=== PATIENT | male | born 1985 | race Caucasian/White ===

== ENCOUNTER 2020-07-26 07:16 | Emergency (ER) | payer BC, SELFPAY ==
[2020-07-26 07:18] VITALS: BP 127/76; PULSE 83; RESP 16; TEMP 36.7; O2SAT 99; BMI 22.4
--- NOTE | 2020-07-26 08:02 | EDS_ITS ---
HPI History of Present Illness Chief Complaint: Dizziness Informant: patient Onset/Context/Timing Onset: Weeks Narrative Narrative: Patient is a 34-year-old male with family history of vertigo presenting with recurrent vertigo. Patient states he has been having worsening vertigo over the past week and a half. He describes it as a room spinning sensation. Patient is seen in [place] [facility] a week and half ago and prescribed meclizine. He states it does help with his symptoms keep recurring. They are worse in the morning when he wakes up. He did not take any meclizine this morning. He states he has chronic issues with pain through his right eye difficulty focusing with his right eye. Is been like that since he was a child. He states his left eye was patched as a child. Patient notes he does have chronic ringing in his ears, left worse than right. 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 His primary care doctor when he lived in [place] had referred him to a neurologist but he never saw 1. He has had issues with vertigo his entire life but has been worse over the past week and a half. He denies any acute vision changes. He denies any difficulty with his coordination or dropping any items. No other complaints at this time. Patient states he did not go to work today so he does need a work note. Prior similar symptoms: [facility] Medical History Vertigo Home Medications meclizine 25 mg PO BID PRN 07/26/20 [History Last Taken Unknown] meclizine 25 mg PO TID PRN #14 tab 07/26/20 [Rx Last Taken Unknown] Allergy/AdvReac Type Severity Reaction Status Date / Time No Known Allergies Allergy Verified 07/26/20 07:17 no surgical history Social History Smoking Status: Smoker, status unknown ROS [facility] ED Constitutional Constitutional ED: Denies chills or fever(s) Eyes Eyes: Reports blurry vision and diplopia; Denies change in vision ENT ENT ED: Reports other Details: Sinus congestion ; Denies change in voice, ear pain, rhinorrhea or vertigo Cardiovascular Cardiovascular: Denies chest pain or hypertension Respiratory/Chest Respiratory/Chest: Denies chest tightness, shortness of breath at rest or other Gastrointestinal Gastrointestinal: Denies nausea or vomiting Genitourinary Genitourinary ED: Denies dysuria or hematuria Musculoskeletal Musculoskeletal: Denies abnormal gait, difficulty walking or muscle weakness Integumentary Denies new lesions or rash Neurologic Neurologic: Reports other Details: Vertigo ; Denies headache(s), paresthesias or weakness Psychiatric Psychiatric: Denies anxiety or confusion EXAM Physical Exam Const Vital Signs: 07/26/20 07:18 07/26/20 07:23 07/26/20 08:28 Temperature 98.0 F Temperature Source Temporal Pulse Rate 83 73 Respiratory Rate 16 18 Respiratory Effort Normal Non-Labored Respiratory Pattern Normal Blood Pressure 127/76 H Blood Pressure Mean 93 Pulse Ox 99 97 Oxygen Delivery Method Room Air Positive well nourished and well developed General Appearance ED: well developed HEENT Reports TM's clear and moist mucous membranes HEENT Narrative: Increased pressure of the tympanic membranes with distorted light reflex bilaterally. No middle ear effusion noted. No erythema tympanic membrane. Boggy nasal mucosa present. Negative for trauma or tenderness Tympanic Membrane ED: Yes TM's clear Eyes PERRL and conjunctivae normal Eyes Narrative: Patient appears to have strabismus of his right eye. He has petit nystagmus with leftward gaze. Positive Orlando-Hallpike test to the left. Pupil: Negative for Kalen Mari pupil Neck no lymphadenopathy, supple and no JVD Resp normal respiratory effort and clear to auscultation bilaterally Cardio regular rate, regular rhythm and no murmurs GI normal to inspection, nondistended, normoactive bowel sounds Extremity normal to inspection General Extremety ED: Negative for edema General Extremity: Negative for edema Neuro oriented x3, CN's II-XII intact bilaterally and no sensory deficits noted Neuro Narrative: Normal coordination with [id number]. Normal ambulation. Sensorium / Orientation: alert Motor Exam: Negative for general weakness Psych mental status grossly normal Skin no rashes or lesions noted MDM MDM MDM Narrative Medical decision making narrative: Patient valuated for recurrent vertigo. He appears nontoxic in no acute distress. He does have strabismus of the right eye which I think is complicating his vertigo. He has a longstanding history of strabismus and vertigo and I do not think this is an acute [id number] circulation stroke or other acute intracranial process. I think this is peripheral vertigo. Patient is given a dose of meclizine in the ER. He is instructed on Maureen maneuver. He is referred to ENT, ophthalmology as well as a primary care doctor. He is given a work note for today. He is given another prescription for meclizine as it does help the symptoms when he takes it. He otherwise has a normal neurologic exam. I do not think imaging or emergent blood work is indicated at this time. Treatment and Re-Evaluation Comments:: Meclizine, discharged home with outpatient follow-up. Discharge Plan Triage Chief Complaint: Dizziness ED Provider: Johana Casper Dx/Rx/DC Orders Clinical Impression: Episodic peripheral vertigo Instructions: ED BPV Vertigo Prescriptions: New meclizine 25 mg tablet 25 mg PO TID PRN (Reason: vertigo) Qty: 14 RF: 0 No Action meclizine 25 mg Tablet 25 mg PO BID PRN (Reason: Dizziness) RF: 0 Primary Care Provider: Matthew Rondon Referrals: Can Herrera MD [STAFF PHYSICIAN] - Pia Rasmussen MD [STAFF PHYSICIAN] - Dominick Wyman MD [STAFF PHYSICIAN] - Matthew Rondon MD [Primary Care Provider] - Activity Restrictions/Additional Instructions: I suspect you have vertigo caused by your left ear. Please perform the Maureen maneuver which were given information on multiple times a day to help relieve it. Please follow-up with ear nose and throat as well as family doctor. I have also referred you to an professor of pathology for your right eye issues. Disposition Disposition: Home, self care Discharge Date/Time: 07/26/20 08:30
[2020-07-26] MEDS: Meclizine HCl 25 MG Tablet PO (08:06)
[2020-07-26 08:28] VITALS: PULSE 73; RESP 18; O2SAT 97
--- NOTE | 2020-07-26 08:29 | ED.RN ---
THIS NURSE REVIEWED D/C INSTRUCTIONS WITH PT. PT VERBALIZED UNDERSTANDING OF INSTRUCTIONS. PT DENIES FURTHER NEEDS OR QUESTIONS AT THIS TIME
== END 2020-07-26 08:30 | disposition home or self-care (01) ==
LOC: ED 08:30
PROVIDERS: Emergency Provider Emergency Medicine; PCP Dentist
DX: H81.399 Other peripheral vertigo, unspecified ear (principal)
CPT/HCPCS: 99283